=== PATIENT | female | born 1985 | race Caucasian/White ===

== ENCOUNTER 2018-09-25 18:53 | Emergency (ER) | payer BC ==
[~2018-09-25] VITALS: Ht 165.1 cm; Wt 110.2 kg
[2018-09-25 18:55] VITALS: BP 97/54
--- NOTE | 2018-09-25 19:10 | NUR ---
PT PRESENTS TO ED WITH C/O RUQ ABD PAIN RADIATING TO RIGHT SIDE OF CHEST AND RIGHT SCHOULDER X3 HRS. NO PAST MEDICAL HX. SUDDEN ONSET. STATES N/V X1. X4 QUADRANT ABD SOUNDS PRESENT. TENDER TO PALPATION. A&OX4 WITH VSS. FAMILY AT BEDSIDE. POSITIONED IN BED FOR COMFORT WITH HOB ELEVATED. X1 SIDE RAIL UP. ER MD AWARE. CONTINUE TO MONITOR.
--- NOTE | 2018-09-25 19:16 | NUR ---
Dr. Mortensen evaluating patient at bedside.
[2018-09-25] MEDS ORDERED: NACL 0.9% 1,000 ML IV ONE (19:20)
[2018-09-25] MEDS ORDERED: MORPHINE SULFATE 4 MG/ML SYR IVP ONE (19:20)
[2018-09-25] MEDS ORDERED: ONDANSETRON 4 MG/2 ML VIAL IVP ONE (19:20)
--- NOTE | 2018-09-25 19:37 | NUR ---
Ultrasound at bedside.
[2018-09-25 19:42] LABS: BASOPHILS % (AUTO) 0.5 % (0.0-2.0); EOSINOPHILS # (AUTO) 0.1 K/uL (0-0.4); EOSINOPHILS % (AUTO) 1.3 % (0.0-4.0); HEMATOCRIT 32.9 % (36-48); HEMOGLOBIN 10.7 g/dL (12.0-16.0); LYMPHOCYTES # (AUTO) 2.4 K/uL (2.5-16.5); MEAN CORPUSCULAR HEMOGLOBIN 27 pg (27-31); MEAN CORPUSCULAR HGB CONC 32 g/dL (33-37); MEAN CORPUSCULAR VOLUME 82.1 fL (80-94); MONOCYTES # (AUTO) 0.5 K/uL (0.8-1.0); MONOCYTES % (AUTO) 6.8 % (1.7-9.3); NEUTROPHILS # (AUTO) 4.4 K/uL (1.8-7.7); NEUTROPHILS % (AUTO) 59.4 % (42.2-75.2); PLATELET COUNT (AUTO) 234 K/uL (140-450); RED BLOOD CELL COUNT(AUTO) 4.01 MIL/uL (4.20-5.40); RED CELL DISTRIBUTION WIDTH 15.1 % (11.6-13.7); WHITE BLOOD COUNT (AUTO) 7.5 K/uL (4.8-10.8)
[2018-09-25 19:58] LABS: CARBON DIOXIDE 27.2 mmol/L (21-32); CREATININE 0.8 mg/dL (0.6-1.3); POTASSIUM 4.2 mmol/L (3.5-5.1)
[2018-09-25 20:06] LABS: ALBUMIN 3.4 g/dL (3.4-5.0); TOTAL BILIRUBIN 0.2 mg/dL (0.0-1.0)
[2018-09-25 20:38] LABS: APPEARANCE,URINE CLEAR (CLEAR); BILIRUBIN,URINE NEGATIVE (NEGATIVE); COLOR,URINE YELLOW (YELLOW); LEUKOCYTE ESTERASE ,URINE NEGATIVE (NEGATIVE); NITRITE, URINE NEGATIVE (NEGATIVE); UGLUCOSE NEGATIVE (NEGATIVE)
[2018-09-25 20:39] LABS: BLOOD, URINE NEGATIVE (NEGATIVE)
[2018-09-25] MEDS ORDERED: KETOROLAC 30 MG/ML VIAL IVP ONE (20:40)
--- NOTE | 2018-09-25 20:46 | NUR ---
X-Ray at bedside.
--- NOTE | 2018-09-25 21:15 | NUR ---
PT STATES PAIN BETTER. 10 AFTER TORODOL GIVEN BUT TOLLERABLE.
[2018-09-25] MEDS ORDERED: HYDROcodone/APAP 5/325 MG 1 TAB TAB PO ONE (21:25)
[2018-09-25 21:47] VITALS: BP 123/76
--- NOTE | 2018-09-25 21:47 | NUR ---
DISCHARGE PAPERS GIVEN TO PT. NO N/V. NO ABD PAIN. RIGHT SIDE RIB PAIN REDUCED TO 2/10 AND TOLLERABLE. VSS. RX OF NORCO AND NAPROSYN GIVEN. SIDE EFFECTS EXPLAINED. INSTRUCTED TO F/U WITH PCP AND WHEN TO RETURN TO ER. PT VERBALLIZED UNDERSTANDING OF DC INSTRUCTIONS. ALL QUESTIONS ANSWERED.
== END 2018-09-25 21:47 | disposition home or self-care (01) ==
LOC: MED 18:53
DX: R07.89 Other chest pain (principal); R10.11 Right upper quadrant pain; M25.511 Pain in right shoulder
CPT/HCPCS: 36415; 71045; 76705; 80053; 81003; 81025; 83690; 85025; 85379; 96361; 96374; 96375; 99284; J1885; J2270; J2405; J7030; Q0092